=== PATIENT | female | born 1930 | race African-American/Black ===

== ENCOUNTER 2017-01-31 21:50 | Inpatient (IN) | payer OTHER ==
[~2017-01-31] VITALS: Ht 162.6 cm; Wt 71.2 kg
[2017-01-31 22:52] LABS: HEMATOCRIT 22.1 % (36.0-46.0); MCH 28.8 PG (29.0-34.0); MCHC 30.8 G/DL (30.0-36.0); MCV 93.6 FL (83-99); MEAN PLAT.VOLUME 11.3 uM^3 (9.5-12.4); NRBC (%) 0.1 /100 WBC (0-0); PLATELET COUNT 333 K/uL (156-360); RBC DIS.WIDTH-CV 15.2 % (11.8-14.6); RBC DIS.WIDTH-SD 51.1 % (39-53); RED BLOOD COUNT 2.36 M/uL (3.80-5.20); WHITE BLOOD COUNT 16.3 K/uL (4.1-10.2)
[2017-01-31 23:12] LABS: CHLORIDE 115 mEq/L (99-109); POTASSIUM 3.7 mEq/L (3.7-5.4); SODIUM 149 mEq/L (136-147)
[2017-01-31 23:14] LABS: GLUCOSE 200 mg/dL (70-99)
[2017-01-31 23:15] LABS: ANION GAP 14 MEQ/L (2-14)
[2017-01-31 23:16] LABS: TOTAL BILIRUBIN 0.8 mg/dL (0.0-1.0)
[2017-01-31 23:17] LABS: ALKALINE PHOSPHATASE 53 IU/L (3-129)
[2017-01-31 23:19] LABS: UREA NITROGEN (BUN) 60 mg/dL (9-23)
[2017-01-31 23:22] LABS: GFR ESTIMATE (CALCULATED) 41 mL/min/; LIPASE 54 U/L (1.0-51.0)
[2017-01-31 23:31] LABS: INTER. NORMALIZED RATIO > 20.0; PROTHROMBIN TIME > 185.0 (9.2-11.2)
[2017-01-31 23:32] LABS: TROP-I INTERPRETATION NEGATIVE; TROPONIN-I < 0.01 ng/mL (0.0-0.30)
[2017-01-31 23:56] LABS: PTT 125.6 (25-32)
[2017-02-01] VITALS (17 sets, daily range): BP systolic 109–160; BP diastolic 49–99
[2017-02-01 00:02] LABS: ADD MIUA? YES; BILIRUBIN NEGATIVE; BLOOD MODERATE; COLOR AMBER ((YELLOW)); GLUCOSE (STRIP) 50; KETONES 5; LEUKOCYTES NEGATIVE; NITRITE NEGATIVE; PROTEIN (STRIP) 30; SPECIFIC GRAVITY 1.024 (1.000-1.030); UROBILINOGEN 0.2 MG/DL (0.2-1.0)
[2017-02-01 00:17] LABS: RED BLOOD CELLS TNTC /HPF (0-5); UCUL ADDED? YES
[2017-02-01] MEDS ORDERED: DONEPEZIL HCL10 MG PO (01:02)
[2017-02-01] MEDS ORDERED: WARFARIN SODIUM5 MG PO (01:02)
[2017-02-01] MEDS ORDERED: ATENOLOL25 MG PO (01:02)
[2017-02-01] MEDS ORDERED: METHOCARBAMOL500 MG PO (01:02)
[2017-02-01] MEDS ORDERED: LO-DOSE ASPIRIN81 M2 PO (01:02)
[2017-02-01] MEDS ORDERED: ATORVASTATIN CA40 MG PO (01:02)
[2017-02-01] MEDS ORDERED: METHIMAZOLE5 MG PO (01:03)
[2017-02-01] MEDS ORDERED: QUETIAPINE FUMA25 MG PO (01:03)
[2017-02-01] MEDS ORDERED: MIRTAZAPINE15 MG PO (01:03)
[2017-02-01] MEDS ORDERED: FAMOTIDINE20 MG PO (01:03)
[2017-02-01 02:31] LABS: HEMATOCRIT 17.1 % (36.0-46.0); MCH 29.5 PG (29.0-34.0); MCHC 31.6 G/DL (30.0-36.0); MCV 93.4 FL (83-99); NRBC (%) 0.2 /100 WBC (0-0); PLATELET COUNT 246 K/uL (156-360); RBC DIS.WIDTH-CV 15.2 % (11.8-14.6); RBC DIS.WIDTH-SD 51.8 % (39-53); WHITE BLOOD COUNT 13.1 K/uL (4.1-10.2)
[2017-02-01 02:32] LABS: RED BLOOD COUNT 1.83 M/uL (3.80-5.20)
[2017-02-01 02:40] LABS: INTER. NORMALIZED RATIO 2.4; PROTHROMBIN TIME 24.8 (9.2-11.2)
[2017-02-01 04:37] LABS: INTER. NORMALIZED RATIO 2.1; PROTHROMBIN TIME 21.4 (9.2-11.2)
[2017-02-01 04:53] LABS: HEMATOCRIT 21.9 % (36.0-46.0); MCH 29.7 PG (29.0-34.0); MCV 92.8 FL (83-99); PLATELET COUNT 232 K/uL (156-360); RBC DIS.WIDTH-CV 14.6 % (11.8-14.6); RBC DIS.WIDTH-SD 49.1 % (39-53); WHITE BLOOD COUNT 13.2 K/uL (4.1-10.2)
[2017-02-01 05:00] LABS: RED BLOOD COUNT 2.36 M/uL (3.80-5.20)
[2017-02-01 11:19] LABS: INTER. NORMALIZED RATIO 1.3; PROTHROMBIN TIME 13.7 (9.2-11.2)
[2017-02-01 11:23] LABS: EOSINOPHIL (%) 0.5 % (0-5); EOSINOPHIL COUNT 0.1 K/uL (0-0.3); HEMATOCRIT 27.7 % (36.0-46.0); IMMATURE GRANULOCYTE (%) 1.5 % (0.0-0.7); IMMATURE GRANULOCYTE COUNT 0.2 K/uL; INSTRUMENT ABS NEUTROPHIL CT 11.3 K/uL; LYMPHOCYTE COUNT 1.4 K/uL (1.0-2.8); MCH 29.2 PG (29.0-34.0); MCHC 32.1 G/DL (30.0-36.0); MCV 90.8 FL (83-99); MEAN PLAT.VOLUME 11.1 uM^3 (9.5-12.4); MONOCYTE COUNT 1.3 K/uL (0-0.8); NEUTROPHIL COUNT 11.3 K/uL (1.8-6.4); NRBC (%) 0.2 /100 WBC (0-0); PLATELET COUNT 204 K/uL (156-360); RBC DIS.WIDTH-CV 14.6 % (11.8-14.6); RBC DIS.WIDTH-SD 48.1 % (39-53); WHITE BLOOD COUNT 14.3 K/uL (4.1-10.2)
[2017-02-01 11:24] LABS: RED BLOOD COUNT 3.05 M/uL (3.80-5.20)
[2017-02-01 11:32] LABS: PTT 24.7 (25-32)
[2017-02-02 04:46] VITALS: BP 140/64
[2017-02-02 07:49] VITALS: BP 112/61
[2017-02-02 08:55] LABS: HEMATOCRIT 23.6 % (36.0-46.0); MCH 29.1 PG (29.0-34.0); MCHC 31.8 G/DL (30.0-36.0); MCV 91.5 FL (83-99); MEAN PLAT.VOLUME 10.7 uM^3 (9.5-12.4); NRBC (%) 0.2 /100 WBC (0-0); PLATELET COUNT 246 K/uL (156-360); RBC DIS.WIDTH-CV 14.9 % (11.8-14.6); RBC DIS.WIDTH-SD 49.2 % (39-53); RED BLOOD COUNT 2.58 M/uL (3.80-5.20); WHITE BLOOD COUNT 10.9 K/uL (4.1-10.2)
[2017-02-02 09:11] LABS: INTER. NORMALIZED RATIO 1.6; PROTHROMBIN TIME 16.4 (9.2-11.2)
[2017-02-02 09:16] LABS: ANION GAP 7 MEQ/L (2-14); CHLORIDE 112 MEQ/L (99-109); GFR ESTIMATE (CALCULATED) > 59 mL/min/; POTASSIUM 3.5 MEQ/L (3.7-5.4); SAMPLE HEMOLYSIS CHECK 0; SAMPLE ICTERIC CHECK 0; SAMPLE LIPEMIA CHECK 0; SODIUM 147 MEQ/L (136-147); UREA NITROGEN (BUN) 40 mg/dL (9-23)
[2017-02-02 09:18] LABS: GLUCOSE 112 mg/dL (70-99)
[2017-02-02 10:37] VITALS: BP 128/62
[2017-02-02 14:10] LABS: HEMATOCRIT 25.8 % (36.0-46.0); MCV 92.1 FL (83-99)
[2017-02-02 16:29] VITALS: BP 143/68
[2017-02-02 20:09] VITALS: BP 135/63
[2017-02-03 01:03] VITALS: BP 122/56
[2017-02-03 03:40] VITALS: BP 133/62
[2017-02-03 07:05] VITALS: BP 152/68
[2017-02-03 07:20] LABS: INTER. NORMALIZED RATIO 2.5
[2017-02-03 07:25] LABS: PROTHROMBIN TIME 26.7 (9.2-11.2)
[2017-02-03 07:29] LABS: MCHC 31.1 G/DL (30.0-36.0); MCV 93.1 FL (83-99); MEAN PLAT.VOLUME 10.5 uM^3 (9.5-12.4); NRBC (%) 0.2 /100 WBC (0-0); PLATELET COUNT 274 K/uL (156-360); RBC DIS.WIDTH-CV 15.1 % (11.8-14.6); RBC DIS.WIDTH-SD 50.3 % (39-53); WHITE BLOOD COUNT 9.4 K/uL (4.1-10.2)
[2017-02-03 07:39] LABS: ANION GAP 6 MEQ/L (2-14); CHLORIDE 112 MEQ/L (99-109); GFR ESTIMATE (CALCULATED) > 59 mL/min/; GLUCOSE 96 mg/dL (70-99); POTASSIUM 3.9 MEQ/L (3.7-5.4); SAMPLE HEMOLYSIS CHECK 0; SAMPLE ICTERIC CHECK 0; SAMPLE LIPEMIA CHECK 0; SODIUM 146 MEQ/L (136-147); UREA NITROGEN (BUN) 31 mg/dL (9-23)
[2017-02-03 11:32] VITALS: BP 122/58
[2017-02-03 16:20] VITALS: BP 143/65
[2017-02-04 00:31] VITALS: BP 140/76
[2017-02-04 03:59] VITALS: BP 139/75
[2017-02-04 07:26] LABS: HEMATOCRIT 26.3 % (36.0-46.0); MCH 29.1 PG (29.0-34.0); MCHC 31.2 G/DL (30.0-36.0); MCV 93.3 FL (83-99); MEAN PLAT.VOLUME 10.3 uM^3 (9.5-12.4); PLATELET COUNT 282 K/uL (156-360); RBC DIS.WIDTH-CV 15.2 % (11.8-14.6); RBC DIS.WIDTH-SD 49.6 % (39-53); RED BLOOD COUNT 2.82 M/uL (3.80-5.20); WHITE BLOOD COUNT 9.8 K/uL (4.1-10.2)
[2017-02-04 08:10] VITALS: BP 128/60
[2017-02-04 08:47] LABS: INTER. NORMALIZED RATIO 3.8; PROTHROMBIN TIME 40.1 (9.2-11.2)
[2017-02-04 09:06] LABS: CHLORIDE 109 mEq/L (99-109); POTASSIUM 3.8 mEq/L (3.7-5.4); SODIUM 141 mEq/L (136-147)
[2017-02-04 09:07] LABS: GLUCOSE 105 mg/dL (70-99)
[2017-02-04 09:09] LABS: ANION GAP 6 MEQ/L (2-14)
[2017-02-04 09:11] LABS: GFR ESTIMATE (CALCULATED) > 59 mL/min/
[2017-02-04 09:13] LABS: UREA NITROGEN (BUN) 21 mg/dL (9-23)
[2017-02-04 11:30] VITALS: BP 114/62
[2017-02-04 15:30] VITALS: BP 129/60
[2017-02-05 01:35] VITALS: BP 108/53
[2017-02-05 07:20] LABS: INTER. NORMALIZED RATIO 3.8; PROTHROMBIN TIME 40.6 (9.2-11.2)
[2017-02-05 08:30] VITALS: BP 132/62
[2017-02-05 12:16] VITALS: BP 116/48
[2017-02-05 16:40] VITALS: BP 101/50
[2017-02-05 23:53] VITALS: BP 134/65
[2017-02-06 06:42] LABS: HEMATOCRIT 27.1 % (36.0-46.0); MCH 29.3 PG (29.0-34.0); MCHC 31.7 G/DL (30.0-36.0); MCV 92.2 FL (83-99); MEAN PLAT.VOLUME 10.1 uM^3 (9.5-12.4); PLATELET COUNT 303 K/uL (156-360); RBC DIS.WIDTH-CV 15.1 % (11.8-14.6); RBC DIS.WIDTH-SD 49.4 % (39-53); RED BLOOD COUNT 2.94 M/uL (3.80-5.20); WHITE BLOOD COUNT 10.8 K/uL (4.1-10.2)
[2017-02-06 07:10] VITALS: BP 96/54
[2017-02-06 07:33] LABS: INTER. NORMALIZED RATIO 2.4; PROTHROMBIN TIME 25.3 (9.2-11.2)
[2017-02-06 15:35] VITALS: BP 108/53
[2017-02-06] MEDS ORDERED: COUMADIN2.5 MG PO (16:44)
== END 2017-02-06 19:04 | disposition home health service (06) | DRG 813 ==
LOC: EME 21:50 → 2EAST 02-01 07:15 → EDOF 02-01 07:15 → 2EASTP 02-01 09:06 → 2EAST 02-01 20:32
PROVIDERS: Emergency Medicine; Hospitalist; Internal Medicine; Nurse Practitioner Adult Health
PROC: 30233N1 Transfusion of Nonautologous Red Blood Cells into Peripheral Vein, Percutaneous Approach (ICD-10-PCS; principal; 2017-02-01)
PROC: 30233K1 Transfusion of Nonautologous Frozen Plasma into Peripheral Vein, Percutaneous Approach (ICD-10-PCS; principal; 2017-02-01)
PROC: 30233R1 Transfusion of Nonautologous Platelets into Peripheral Vein, Percutaneous Approach (ICD-10-PCS; principal; 2017-02-01)
DX: D68.32 Hemorrhagic disorder due to extrinsic circulating anticoagulants (principal); D62 Acute posthemorrhagic anemia; N13.30 Unspecified hydronephrosis; F03.90 Unspecified dementia, unspecified severity, without behavioral disturbance, psychotic disturbance, mood disturbance, and anxiety; R31.0 Gross hematuria; T45.515A Adverse effect of anticoagulants, initial encounter; I48.91 Unspecified atrial fibrillation; Z86.73 Personal history of transient ischemic attack (TIA), and cerebral infarction without residual deficits
CPT/HCPCS: 70450; 71010; 74176; 80048; 80053; 81003; 83605; 83690; 84484; 85014; 85018; 85025; 85027; 85610; 85730; 86850; 86900; 86901; 86920; 87040; 87086; 93005; 97530 GP; 99281; 99285; C9113; J0692; J1630; J1940; J2405; J3430; J7030; J7050; P9016; P9017; S0028

== ENCOUNTER 2017-05-22 19:13 | Inpatient (IN) | payer OTHER ==
[~2017-05-22] VITALS: Ht 160 cm; Wt 60.0 kg
[~2017-05-22 19:13] MED LIST: ATENOLOL25 MG PO; ATORVASTATIN CA40 MG PO; COUMADIN2.5 MG PO; DONEPEZIL HCL10 MG PO; FAMOTIDINE20 MG PO; LO-DOSE ASPIRIN81 M2 PO; METHIMAZOLE5 MG PO; METHOCARBAMOL500 MG PO; MIRTAZAPINE15 MG PO; QUETIAPINE FUMA25 MG PO; WARFARIN SODIUM5 MG PO
[2017-05-22 21:10] LABS: ADD MIUA? YES; BILIRUBIN NEGATIVE; BLOOD NEGATIVE; COLOR AMBER ((YELLOW)); GLUCOSE (STRIP) NEGATIVE; KETONES 5; LEUKOCYTES NEGATIVE; NITRITE NEGATIVE; PROTEIN (STRIP) NEGATIVE; SPECIFIC GRAVITY 1.024 (1.000-1.030)
[2017-05-22 21:25] LABS: EOSINOPHIL (%) 0.1 % (0-5); HEMATOCRIT 41.8 % (36.0-46.0); IMMATURE GRANULOCYTE (%) 0.6 % (0.0-0.7); IMMATURE GRANULOCYTE COUNT 0.1 K/uL; MCH 26.6 PG (29.0-34.0); MCHC 32.3 G/DL (30.0-36.0); MCV 82.4 FL (83-99); MONOCYTE (%) 5.6 % (3-12); NEUTROPHIL (%) 88.3 % (45-76); RBC DIS.WIDTH-CV 16.4 % (11.8-14.6); RBC DIS.WIDTH-SD 49.3 % (39-53); RED BLOOD COUNT 5.07 M/uL (3.80-5.20); WHITE BLOOD COUNT 18.1 K/uL (4.1-10.2)
[2017-05-22 21:31] LABS: BACTERIA 1+ /HPF; CASTS PRESENT /LPF; CRYSTALS NONE SEEN; EPITHELIAL CELLS 1+ /HPF; FINE GRANULAR CASTS 0-5 /LPF; HYALINE CASTS 0-5 /LPF; MUCUS RARE /LPF; RED BLOOD CELLS 0-5 /HPF (0-5); UCUL ADDED? NO; WHITE BLOOD CELLS 0-5 /HPF (0-5)
[2017-05-22 21:52] LABS: TROP-I INTERPRETATION NEGATIVE; TROPONIN-I 0.02 ng/mL (0.0-0.30)
[2017-05-22 22:04] LABS: PLATELET COUNT 310 K/uL (156-360)
[2017-05-22 22:05] LABS: MEAN PLAT.VOLUME 9.2 uM^3 (9.5-12.4)
[2017-05-22 22:11] LABS: CHLORIDE 104 mEq/L (99-109); POTASSIUM 4.2 mEq/L (3.7-5.4); SODIUM 139 mEq/L (136-147)
[2017-05-22 22:13] LABS: GLUCOSE 152 mg/dL (70-99)
[2017-05-22 22:14] LABS: ANION GAP 16 MEQ/L (2-14)
[2017-05-22 22:15] LABS: TOTAL BILIRUBIN 0.8 mg/dL (0.0-1.0)
[2017-05-22 22:16] LABS: ALKALINE PHOSPHATASE 80 IU/L (3-129)
[2017-05-22 22:17] LABS: GFR ESTIMATE (CALCULATED) > 59 mL/min/; TROP-I INTERPRETATION NEGATIVE; TROPONIN-I 0.01 ng/mL (0.0-0.30)
[2017-05-22 22:18] LABS: DIRECT BILIRUBIN 0.4 mg/dL (0.0-0.3); UREA NITROGEN (BUN) 34 mg/dL (9-23)
[2017-05-22 22:20] LABS: CREATINE KINASE 95 IU/L (1-294)
[2017-05-23 02:41] VITALS: BP 135/70
[2017-05-23 07:45] LABS: EOSINOPHIL (%) 0.1 % (0-5); HEMATOCRIT 37.3 % (36.0-46.0); IMMATURE GRANULOCYTE (%) 0.7 % (0.0-0.7); IMMATURE GRANULOCYTE COUNT 0.1 K/uL; INSTRUMENT ABS NEUTROPHIL CT 14.4 K/uL; LYMPHOCYTE COUNT 1.1 K/uL (1.0-2.8); MCH 27.4 PG (29.0-34.0); MCHC 32.4 G/DL (30.0-36.0); MCV 84.4 FL (83-99); MEAN PLAT.VOLUME 9.5 uM^3 (9.5-12.4); MONOCYTE (%) 7.5 % (3-12); MONOCYTE COUNT 1.3 K/uL (0-0.8); NEUTROPHIL (%) 85.3 % (45-76); NEUTROPHIL COUNT 14.4 K/uL (1.8-6.4); PLATELET COUNT 359 K/uL (156-360); RBC DIS.WIDTH-CV 16.4 % (11.8-14.6); RBC DIS.WIDTH-SD 50.5 % (39-53); RED BLOOD COUNT 4.42 M/uL (3.80-5.20); WHITE BLOOD COUNT 16.8 K/uL (4.1-10.2)
[2017-05-23 08:15] VITALS: BP 99/51
[2017-05-23 08:21] LABS: ANION GAP 11 MEQ/L (2-14); CHLORIDE 109 MEQ/L (99-109); GFR ESTIMATE (CALCULATED) > 59 mL/min/; GLUCOSE 133 mg/dL (70-99); MAGNESIUM 2.1 mg/dl (1.3-2.7); POTASSIUM 4.2 MEQ/L (3.7-5.4); SAMPLE HEMOLYSIS CHECK 0; SAMPLE ICTERIC CHECK 0; SAMPLE LIPEMIA CHECK 0; SODIUM 144 MEQ/L (136-147); UREA NITROGEN (BUN) 33 mg/dL (9-23)
[2017-05-23 09:48] LABS: INTER. NORMALIZED RATIO 8.8
[2017-05-23 12:30] VITALS: BP 110/66
[2017-05-23 15:35] VITALS: BP 100/60
[2017-05-23 20:16] VITALS: BP 135/67
[2017-05-24] VITALS (7 sets, daily range): BP systolic 97–134; BP diastolic 50–67
[2017-05-24 07:13] LABS: EOSINOPHIL (%) 0 % (0-5); HEMATOCRIT 28.5 % (36.0-46.0); IMMATURE GRANULOCYTE (%) 0.7 % (0.0-0.7); IMMATURE GRANULOCYTE COUNT 0.1 K/uL; INSTRUMENT ABS NEUTROPHIL CT 10.3 K/uL; LYMPHOCYTE COUNT 0.6 K/uL (1.0-2.8); MCH 27.4 PG (29.0-34.0); MCHC 32.6 G/DL (30.0-36.0); MCV 84.1 FL (83-99); MEAN PLAT.VOLUME 9.3 uM^3 (9.5-12.4); MONOCYTE (%) 1.6 % (3-12); MONOCYTE COUNT 0.2 K/uL (0-0.8); NEUTROPHIL (%) 92.2 % (45-76); NEUTROPHIL COUNT 10.3 K/uL (1.8-6.4); PLATELET COUNT 274 K/uL (156-360); RBC DIS.WIDTH-CV 16.4 % (11.8-14.6); RBC DIS.WIDTH-SD 50.6 % (39-53); WHITE BLOOD COUNT 11.2 K/uL (4.1-10.2)
[2017-05-24 07:16] LABS: RED BLOOD COUNT 3.39 M/uL (3.80-5.20)
[2017-05-24 07:28] LABS: INTER. NORMALIZED RATIO 5.1; PROTHROMBIN TIME 59.8 SEC (10.2-12.9)
[2017-05-24 08:11] LABS: ANION GAP 8 MEQ/L (2-14); CHLORIDE 110 MEQ/L (99-109); GFR ESTIMATE (CALCULATED) > 59 mL/min/; GLUCOSE 136 mg/dL (70-99); POTASSIUM 3.7 MEQ/L (3.7-5.4); SAMPLE HEMOLYSIS CHECK 0; SAMPLE ICTERIC CHECK 0; SAMPLE LIPEMIA CHECK 0; SODIUM 140 MEQ/L (136-147); UREA NITROGEN (BUN) 27 mg/dL (9-23)
[2017-05-24] MEDS ORDERED: COUMADIN5 MG PO (11:03)
[2017-05-25 03:45] VITALS: BP 113/58
[2017-05-25 07:04] LABS: EOSINOPHIL (%) 0 % (0-5); HEMATOCRIT 27.8 % (36.0-46.0); IMMATURE GRANULOCYTE (%) 0.8 % (0.0-0.7); IMMATURE GRANULOCYTE COUNT 0.1 K/uL; INSTRUMENT ABS NEUTROPHIL CT 9.7 K/uL; LYMPHOCYTE COUNT 0.7 K/uL (1.0-2.8); MCH 27.6 PG (29.0-34.0); MCV 86.1 FL (83-99); MEAN PLAT.VOLUME 9.7 uM^3 (9.5-12.4); MONOCYTE COUNT 0.3 K/uL (0-0.8); NEUTROPHIL (%) 90.1 % (45-76); NEUTROPHIL COUNT 9.7 K/uL (1.8-6.4); PLATELET COUNT 252 K/uL (156-360); RBC DIS.WIDTH-CV 16.4 % (11.8-14.6); RED BLOOD COUNT 3.23 M/uL (3.80-5.20); WHITE BLOOD COUNT 10.8 K/uL (4.1-10.2)
[2017-05-25 07:10] VITALS: BP 122/57
[2017-05-25 07:16] LABS: INTER. NORMALIZED RATIO 3.8; PROTHROMBIN TIME 44.4 SEC (10.2-12.9)
[2017-05-25 07:27] LABS: ANION GAP 6 MEQ/L (2-14); CHLORIDE 114 MEQ/L (99-109); GFR ESTIMATE (CALCULATED) > 59 mL/min/; GLUCOSE 147 mg/dL (70-99); POTASSIUM 3.9 MEQ/L (3.7-5.4); SAMPLE HEMOLYSIS CHECK 0; SAMPLE ICTERIC CHECK 0; SAMPLE LIPEMIA CHECK 0; SODIUM 142 MEQ/L (136-147); UREA NITROGEN (BUN) 24 mg/dL (9-23)
[2017-05-25 11:10] VITALS: BP 131/60
[2017-05-25 15:46] VITALS: BP 140/67
[2017-05-25 21:00] VITALS: BP 139/65
[2017-05-26 00:47] VITALS: BP 125/58
[2017-05-26 04:19] VITALS: BP 134/62
[2017-05-26 06:58] LABS: POINT-OF-CARE METER ID UU14208750
[2017-05-26 07:35] LABS: INTER. NORMALIZED RATIO 4.3; PROTHROMBIN TIME 50.1 SEC (10.2-12.9)
[2017-05-26 07:57] LABS: EOSINOPHIL (%) 0.1 % (0-5); HEMATOCRIT 31.2 % (36.0-46.0); IMMATURE GRANULOCYTE (%) 0.7 % (0.0-0.7); IMMATURE GRANULOCYTE COUNT 0.1 K/uL; INSTRUMENT ABS NEUTROPHIL CT 10.8 K/uL; LYMPHOCYTE COUNT 1.6 K/uL (1.0-2.8); MCH 26.5 PG (29.0-34.0); MCHC 31.1 G/DL (30.0-36.0); MCV 85.2 FL (83-99); MEAN PLAT.VOLUME 9.4 uM^3 (9.5-12.4); MONOCYTE COUNT 0.9 K/uL (0-0.8); NEUTROPHIL (%) 80.4 % (45-76); NEUTROPHIL COUNT 10.8 K/uL (1.8-6.4); PLATELET COUNT 310 K/uL (156-360); RBC DIS.WIDTH-CV 16.2 % (11.8-14.6); RBC DIS.WIDTH-SD 50.3 % (39-53); RED BLOOD COUNT 3.66 M/uL (3.80-5.20); WHITE BLOOD COUNT 13.5 K/uL (4.1-10.2)
[2017-05-26 07:59] LABS: ANION GAP 7 MEQ/L (2-14); CHLORIDE 113 MEQ/L (99-109); GFR ESTIMATE (CALCULATED) > 59 mL/min/; POTASSIUM 3.6 MEQ/L (3.7-5.4); SAMPLE HEMOLYSIS CHECK 0; SAMPLE ICTERIC CHECK 0; SAMPLE LIPEMIA CHECK 0; SODIUM 143 MEQ/L (136-147); UREA NITROGEN (BUN) 27 mg/dL (9-23)
[2017-05-26 08:00] LABS: GLUCOSE 109 mg/dL (70-99)
[2017-05-26 08:07] VITALS: BP 145/68
[2017-05-26 15:52] VITALS: BP 118/63
[2017-05-26 20:58] VITALS: BP 146/64
[2017-05-27 00:42] VITALS: BP 167/81
[2017-05-27 04:21] VITALS: BP 149/75
[2017-05-27 07:38] VITALS: BP 159/75
[2017-05-27 07:47] LABS: PTT 39.5 SEC (25-37)
[2017-05-27 07:53] LABS: PROTHROMBIN TIME 34.1 SEC (10.2-12.9)
[2017-05-27 08:03] LABS: ANION GAP 6 MEQ/L (2-14); CHLORIDE 112 MEQ/L (99-109); GFR ESTIMATE (CALCULATED) > 59 mL/min/; GLUCOSE 87 mg/dL (70-99); MAGNESIUM 1.7 mg/dl (1.3-2.7); SAMPLE HEMOLYSIS CHECK 0; SAMPLE ICTERIC CHECK 0; SAMPLE LIPEMIA CHECK 0; SODIUM 143 MEQ/L (136-147); UREA NITROGEN (BUN) 23 mg/dL (9-23)
[2017-05-27 08:11] LABS: POTASSIUM 4.5 MEQ/L (3.7-5.4)
[2017-05-27 15:26] VITALS: BP 135/70
[2017-05-27 23:28] VITALS: BP 133/65
[2017-05-28 06:53] LABS: INTER. NORMALIZED RATIO 2.3
[2017-05-28 07:18] VITALS: BP 148/70
[2017-05-28] MEDS ORDERED: DOCU LIQUI50 MG/5 ML PO (13:23)
[2017-05-28] MEDS ORDERED: ZINC OXIDE56.7 GM TP (13:23)
[2017-05-28] MEDS ORDERED: TYLENOL REGULA325 MG PO (13:23)
[2017-05-28] MEDS ORDERED: SENNA LAX8.6 MG PO (13:23)
[2017-05-28] MEDS ORDERED: METHOCARBAMOL500 MG PO (13:23)
[2017-05-28] MEDS ORDERED: SANTYL30 GM TP (13:23)
[2017-05-28] MEDS ORDERED: FENTANYL1 EAC4 TD (13:23)
[2017-05-28 15:35] VITALS: BP 144/65
[2017-05-28 23:34] VITALS: BP 168/73
[2017-05-29 07:13] LABS: INTER. NORMALIZED RATIO 2.5; PROTHROMBIN TIME 28.1 SEC (10.2-12.9)
[2017-05-29 07:57] VITALS: BP 142/64
[2017-05-29] MEDS ORDERED: HYDROCODON-ACE1 EAC7 PO (10:24)
[2017-05-29 16:19] VITALS: BP 152/82
== END 2017-05-29 17:48 | DRG 602 ==
LOC: EME 19:13 → EDOF 23:49 → 2EAST 23:49
PROVIDERS: Emergency Medicine; Hospitalist; Internal Medicine
DX: L03.317 Cellulitis of buttock (principal); L89.323 Pressure ulcer of left buttock, stage 3; E46 Unspecified protein-calorie malnutrition; L89.621 Pressure ulcer of left heel, stage 1; L89.619 Pressure ulcer of right heel, unspecified stage; E83.39 Other disorders of phosphorus metabolism; R65.10 Systemic inflammatory response syndrome (SIRS) of non-infectious origin without acute organ dysfunction; E86.0 Dehydration; M25.562 Pain in left knee; M25.561 Pain in right knee; M17.0 Bilateral primary osteoarthritis of knee; E87.6 Hypokalemia; R79.1 Abnormal coagulation profile; L30.9 Dermatitis, unspecified; Z96.652 Presence of left artificial knee joint; I10 Essential (primary) hypertension; E78.5 Hyperlipidemia, unspecified; F03.90 Unspecified dementia, unspecified severity, without behavioral disturbance, psychotic disturbance, mood disturbance, and anxiety; L89.159 Pressure ulcer of sacral region, unspecified stage; M19.012 Primary osteoarthritis, left shoulder; M19.011 Primary osteoarthritis, right shoulder; S43.002A Unspecified subluxation of left shoulder joint, initial encounter; S43.001A Unspecified subluxation of right shoulder joint, initial encounter; T76.01XA Adult neglect or abandonment, suspected, initial encounter; I48.2 Chronic atrial fibrillation; D64.9 Anemia, unspecified; Z79.01 Long term (current) use of anticoagulants; Z86.73 Personal history of transient ischemic attack (TIA), and cerebral infarction without residual deficits; Z68.23 Body mass index [BMI] 23.0-23.9, adult; Z79.82 Long term (current) use of aspirin; M75.100 Unspecified rotator cuff tear or rupture of unspecified shoulder, not specified as traumatic; L97.411 Non-pressure chronic ulcer of right heel and midfoot limited to breakdown of skin
CPT/HCPCS: 71010; 72170; 73030; 73552; 73600; 73610; 80048; 80076; 81003; 82550; 82948; 83605; 83735; 84100; 84439; 84443; 84484; 85025; 85610; 85651; 85730; 87040; 87493; 93005; 99281; 99285; J0692; J0696; J2920; J3010; J3370; J7030; J7050; J7120